=== PATIENT | male | born 1965 | race Two or more races ===

== ENCOUNTER 2020-09-03 15:08 | Emergency (ER) | payer SELFPAY ==
[~2020-09-03] VITALS: Ht 167.6 cm; Wt 86.0 kg
--- NOTE | 2020-09-03 15:34 | NUR ---
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 PT STATES HE LOST HIS GLASSES AND CANNOT SEE ANYTHING. STATES EVERYTHING LOOKS BLURRY. COLLIN JONES NOTIFIED UNABLE TO GET VA'S.
[2020-09-03 15:57] LABS: BASOPHILS % (AUTO) 0 % (0-1); EOSINOPHILS % (AUTO) 3 % (1-7); LYMPHOCYTES % (AUTO) 25 % (22-44); MEAN CORPUSCULAR HEMOGLOBIN 30.5 pg (27.5-34.5); MEAN CORPUSCULAR HGB CONC 35.5 g/dL (33.2-36.2); MEAN PLATELET VOLUME 8.1 fL (7.4-10.4); MONOCYTES % (AUTO) 6 % (2-9); NEUTROPHILS % (AUTO) 66 % (42-75); PLATELET COUNT 250 x10^3/uL (130-400); RED BLOOD COUNT 4.92 x10^6/uL (4.38-5.82); RED CELL DISTRIBUTION WIDTH 13.8 % (9.4-14.8)
[2020-09-03 15:59] LABS: MD NO
[2020-09-03 16:05] LABS: ALANINE AMINOTRANSFERASE 35 U/L (12-78); ALBUMIN 3.4 g/dL (3.4-5.0); ANION GAP 8 mmol/L (5-15); CALCIUM 9.2 mg/dL (8.5-10.1); CHLORIDE 112 mmol/L (98-107)
[2020-09-03 16:08] LABS: ALKALINE PHOSPHATASE 104 U/L (45-117); BILIRUBIN,TOTAL 0.5 mg/dL (0.2-1.0); TOTAL PROTEIN 7.5 g/dL (6.4-8.2)
--- NOTE | 2020-09-03 17:25 | NUR ---
Pt resting, no needs at this time. Provided with blanket. Updated on POC. VS updated.
--- NOTE | 2020-09-03 17:28 | NUR ---
Pt states periodic blurry vision in L eye since Aug 05
[2020-09-03] MEDS ORDERED: PROPARACAINE OPHTH 0.5%, 15ML LEFTEYE ONE (19:00)
[2020-09-03] MEDS ORDERED: PROPARACAINE OPHTH 0.5%, 15ML ONE (19:04)
[2020-09-03] MEDS ORDERED: FLUORESCEIN OPHTHALMIC 1 MG STRIP ONE (19:13)
[2020-09-03 21:02] VITALS: BP 139/88
--- NOTE | 2020-09-03 21:03 | NUR ---
Pt dc'd with written and verabl instructions, rx reviewed. Pt states understanding to both. Pt instructed to f/u with eye doc. Pt ambulatory out of ED without difficulty.
== END 2020-09-03 21:05 | disposition home or self-care (01) ==
LOC: ED 15:45
DX: H40.212 Acute angle-closure glaucoma, left eye (principal); E11.9 Type 2 diabetes mellitus without complications; I10 Essential (primary) hypertension
CPT/HCPCS: 36415; 80053; 82962; 85025; 99283